=== PATIENT | female | born 1990 | race Caucasian/White ===

== ENCOUNTER → 2021-03-29 | Outpatient (CLI) | payer OTHER ==
[~2021-03-29] MED LIST: ALBU2.5V8 IH; GADOTERATE 7.5 MMOL/15ML VIAL. IVP ONE; MONT10TA49 PO; NORE-2 PO
--- NOTE | 2021-03-29 12:49 | KCIC ---
MRI of the abdomen without and with contrast 03/29/2021 CLINICAL HISTORY: Indeterminate liver lesions seen on recent CT scan of the abdomen. TECHNIQUE: In and out of phase T1-weighted axial, diffusion-weighted axial, T2-weighted axial, fat sa turated T1-weighted axial and fat saturated T2-weighted axial and coronal images of the abdomen were obtained. After the dynamic enhanced administration of 13 cc of Clariscan, fat-saturated T1-weighted axial images of the abdomen were obtained. Additionally enhanced T1-weighted fat-saturated axial imag es of the abdomen were obtained using a 5 minute delay. FINDINGS: Comparison is made to a CT scan of the abdomen dated 10/30/2020. On the T2-weighted images a somewhat rounded area of signal abnormality is seen involving the the lef t lobe of the liver. This measures 2.7 cm in size. A small area of increased signal intensity is seen on the T2-weighted images involving the right lobe of the liver, posteriorly, which measures 1.1 cm in size. These lesions correspond to the abnormalities seen on the patients CT scan. They demonstrate decreased signal intensity on the T1-weighted images. They demonstrate peripheral nodular enhancemen t with gradual fill-in on the postcontrast images. They are consistent with hemangiomas. No additiona l abnormality of the liver is seen. The spleen, pancreas, adrenal glands and kidneys are within normal limits. The abdominal aorta tapers normally. The gallbladder is contracted. No free fluid or free air is with in the abdomen. There is no evidence of bowel obstruction. No free fluid is seen. IMPRESSION: Hemangiomas are seen within the liver which measure 1.1 and 2.7 cm in size. These corresp ond to the abnormalities seen on the patient's recent CT scan. No additional abnormality is seen. Electronically signed by: Sergio Galloway MD (03/29/2021 12:46 PM) [id number]
== END ==
LOC: KCIC MRI 08:31
PROVIDERS: ATTEND Family Medicine
DX: D18.09 Hemangioma of other sites (principal); K76.9 Liver disease, unspecified; K82.0 Obstruction of gallbladder
CPT/HCPCS: 74183; A9575

== ENCOUNTER → 2021-11-26 | Outpatient (CLI) | payer OTHER ==
[~2021-11-26] MED LIST changes: +BECL10.62 IH; +BUSP5TAB PO; +DICY10CA3 PO; +FAMO20TA5 PO; -GADOTERATE 7.5 MMOL/15ML VIAL. IVP ONE; +OMEP40CA7 PO; +ONDA4TAB12 PO; +OXYC-325 PO; +TRAZ-118 PO
== END ==
LOC: LAB 12:45
PROVIDERS: ATTEND Surgery
DX: Z01.812 Encounter for preprocedural laboratory examination (principal); Z20.822 Contact with and (suspected) exposure to COVID-19
CPT/HCPCS: U0003

== ENCOUNTER 2021-11-28 12:31 | Day surgery (SDC) | payer OTHER ==
[~2021-11-28] VITALS: Ht 175.3 cm; Wt 59.0 kg
[~2021-11-28 12:31] MED LIST changes: +BUPIVACAINE-EPI 0.5% 30 ML VIAL KIT. ONE; +HYDROmorphone 2 MG/ML INJ. IVP PRN; +IOHEXOL 300 MG/ML 50 ML VIAL. ONE; +IV RINGERS,LACTATED 1000ML 1,000 ML IV SCH; +MORPHINE SULFATE 2 MG/ML INJ. IVP PRN; -OXYC-325 PO; +PROCHLORPERAZINE 10 MG/2 ML VIAL. IVP PRN; +SURGICEL HEMOSTAT 4X8 EACH. ONE; +ceFAZolin SODIUM IV Push 1 GM VIAL. IVP PRN; +fentaNYL PF VIAL 100 MCG/2 ML VIAL IVP PRN
[2021-11-28 13:13] VITALS: BP 118/70
[2021-11-28] MEDS ORDERED: OXYC-325 PO (14:26)
--- NOTE | 2021-11-28 14:27 | DISCH ---
DISCHARGE INSTRUCTIONS Condition on Discharge Condition on Discharge: Stable Activity After Discharge Activity Instructions for Disc: Other, see below (No lifting over 20 lbs X 2 weeks, no driving while taking pain meds) Diet after Discharge Diet after Discharge: Regular Wound Incision Care Wound/Incision Care: Other, see below (may remove bandaids and shower tomorrow) Follow-Up Follow up with: Dr Hercules in office in 2 weeks, call for appointment [phone] JOSE HERCULES MD Nov 28, 2021 14:27
[2021-11-28] MEDS ORDERED: ONDANSETRON PF 4 MG/2 ML VIAL. ONE (14:33)
[2021-11-28] MEDS ORDERED: PROPOFOL 10 MG/ML (20ML) VIAL. IV ONE (14:33)
[2021-11-28] MEDS ORDERED: DEXAMETHASONE SOD PHOS 4 MG/ML VIAL ONE (14:33)
[2021-11-28] MEDS ORDERED: LIDOCAINE 2% PF 5 ML VIAL. ONE (14:33)
[2021-11-28] MEDS ORDERED: ROCURONIUM 50 MG/5 ML VIAL. ONE (14:34)
[2021-11-28] MEDS ORDERED: fentaNYL PF VIAL 100 MCG/2 ML VIAL ONE (14:44)
[2021-11-28] MEDS ORDERED: MIDAZOLAM HCL/PF 2 MG/2 ML VIAL. ONE (14:46)
[2021-11-28] MEDS ORDERED: diphenhydrAMINE 50 MG/ML VIAL ONE (15:40)
[2021-11-28] MEDS ORDERED: HYDROmorphone 2 MG/ML INJ. ONE (15:41)
[2021-11-28] MEDS ORDERED: SUGAMMADEX SODIUM 200 MG/2 ML VIAL. IVP ONE (16:00)
[2021-11-28] MEDS ORDERED: KETOROLAC 30 MG/ML VIAL. ONE (16:15)
--- NOTE | 2021-11-28 16:24 | PDOC4 ---
Operative Note Operative Note Operative Note: Preoperative Diagnosis: Biliary dyskinesia Postoperative Diagnosis: Same Procedure: Laparoscopic cholecystectomy with intraoperative cholangiogram Surgeons: Theron Hand Sewer Shoes: Christal AGUAYO Anesthesia: Gen. Estimated Blood Loss: 10 mL Specimen: Gallbladder to pathology Drains: None Complications: None Indications: The patient is a 31-year-old female who was referred out of concern for biliary dyskinesia. Surgical treatment was offered by means of a laparoscopic cholecystectomy. The risks of surgery were discussed which include bleeding, infection, bile duct injury, bile leak, pain, the potential for additional surgeries or procedures. The patient understands and would like to proceed. Description: The patient was taken to the operating room and laid supine on the operating table. General anesthesia was performed. The abdomen was prepped with ChloraPrep and draped in a standard surgical fashion. A small infraumbilical incision was made with a scalpel. The Veress needle was then inserted and a pneumoperitoneum was then created. A 5 mm trocar was then inserted and the laparoscope was introduced. In the upper midabdomen a 5 mm trocar was inserted and in the right upper quadrant two 2.3 mm mini lap graspers were inserted. The gallbladder was retracted cephalad. The cystic duct was dissected free from surrounding tissues. One clip was placed on the duct near the gallbladder junction. An opening was made in the duct and a cholangiocatheter placed within and secured with a clip. Using contrast dye and fluoroscopy an intraoperative cholangiogram was performed that appeared unremarkable. The clip and catheter were then withdrawn. Three clips were placed on the cystic duct and it was divided. The cystic artery was then identified, dissected free, doubly clipped and divided as well. The gallbladder was then mobilized away from the liver with cautery. The umbilical 5 millimeter trocar was exchanged for an 11 millimeter trocar. The gallbladder was then placed in an endoscopic bag and extracted at the umbilical trocar site. The f ascia there was closed with an 0 Vicryl suture and infiltrated with 0.5% marcaine. All blood and irrigation fluid was suctioned and hemostasis was good. The remaining ports were removed and the pneumoperitoneum was relieved. The skin incisions were closed using 4-0 Monocryl suture. Steri-Strips and dressings were then applied. The patient tolerated the procedure well and was s ent to the recovery room in stable condition. At the end of the case all counts were correct. JOSE HERCULES MD Nov 28, 2021 16:24
--- NOTE | 2021-11-28 16:27 | RAD ---
DG INTRAOPERATIVE CHOLANGIOGRAM History: Reason: CHOLANGIOGRAM IN OR W/C-ARM / Spl. Instructions: / History: . Pain Comparison: None. Technique/findings: Cholangiogram performed intraoperatively after cholecystectomy. Common bile duct and intrahepatic hitesh ts opacified. Normal caliber. The contrast noted within the small bowel. See procedure note for further details. Fluoroscopy time: Less than 1 minute. Number of fluoroscopic images: 2 Impression: 1. Fluoroscopy provided during cholangiogram. No evidence of common bile duct obstruction. Electronically signed by: August Gomez DO (11/28/2021 4:25 PM) [place]
[2021-11-28] MEDS ORDERED: PROCHLORPERAZINE 10 MG/2 ML VIAL. ONE (16:38)
[2021-11-28] MEDS ORDERED: oxyCODONE/APAP 5/325 1 TAB TABLET PO ONE (17:00)
[2021-11-28 17:30] VITALS: BP 119/65
--- NOTE | 2021-11-30 15:08 | PATHOLOGY ---
[facility] Accession Number: [id number] . 01 Material submitted: . gallbladder - GALLBLADDER AND CONTENTS . 01 Clinical history: . BILIARY DYSKINESIA LAP DOUGLAS WITH GRAMS . 02 Diagnosis: Gallbladder, laparoscopic cholecystectomy: - Cholesterolosis. - Chronic cholecystitis. (GUILLERMINAM:lashawn; 11/30/2021) [facility] 11/30/2021 0945 Local . 02 Comment: There are no calculi identified within the gallbladder lumen or specimen container. There is no evidence of malignancy. (GUILLERMINAM:lashawn; 11/30/2021) . 02 Electronically signed: . Kleber Waldrop MD, Pathologist NPI- [id number] . 01 Gross description: . Fixative: Formalin Labeled: Gallbladder and contents Specimen received: Intact gallbladder Dimensions: 5.5 x 1.9 x 1.9 cm Serosa: Light mcnair-green to light abel, with light mcnair-yellow to light green, shaggy and cauterized adventitia Lymph node: None identified Mucosa: Velvety and bile-stained with light yellow stippling Average wall thickness: 0.1 cm Calculi: None identified Abnormalities: None identified . A1- Pig Caster body, fundus, and the cystic duct margin. ([facility]; 11/29/2021) [facility] 11/29/2021 1648 Local . 02 Pathologist provided ICD-10: K82.4, K81.1 . 02 CPT . 773337 Specimen Comment: A courtesy copy of this report has been sent to [phone], [phone] Specimen Comment: [id number] Specimen Comment: Report sent to / DR REES Specimen Comment: A duplicate report has been generated due to demographic updates. Performed at: 01 [facility] [address] [facility] [address], [place] [id number] MD Toro Boyd MD Phone: [phone] Performed at: 02 [facility] [address] [place] [id number] MD Kleber Waldrop MD Phone: [phone]
== END 2021-11-28 18:00 | disposition home or self-care (01) ==
LOC: SURG 12:31
PROVIDERS: ATTEND Surgery
DX: K82.8 Other specified diseases of gallbladder (principal); K81.1 Chronic cholecystitis; J45.909 Unspecified asthma, uncomplicated; F41.9 Anxiety disorder, unspecified; F32.9 Major depressive disorder, single episode, unspecified; Z79.899 Other long term (current) drug therapy; Z98.890 Other specified postprocedural states; Z88.8 Allergy status to other drugs, medicaments and biological substances
CPT/HCPCS: 47563; 74300; 81025; A4213; A4364; A4930; A6219; C1887; J0780; J1100; J1170; J1200; J1885; J2250; J2405; J2704; J3010; J3490; Q9967; A4452; A4657